=== PATIENT | female | born 1970 | race Caucasian/White ===

== ENCOUNTER 2020-05-24 16:24 | Emergency (ER) | payer MEDICAID, SELFPAY ==
--- NOTE | ~2020-05-24 | CT_ITS ---
EXAMINATION: CTA chest PE protocol DATE: 05/24/2020 18:11 INDICATION: Shortness of breath. TECHNIQUE: Computed tomography angiography (CTA) of the chest was performed with 100 mL Omnipaque-350 intravenous contrast timed to evaluate the pulmonary arteries. Coronal maximum intensity projection 3D-reconstructions were created by the technologist. Automated exposure control and iterative reconst ruction technique were employed. The dose-length product was 1048.64 mGy-cm. COMPARISON: None. FINDINGS: There is mild emphysema. There is 8 mm nodule in right lower lobe. There is a 1.8 x 1.6 cm right hilar lymph node. A calcified left lung nodule and calcified left hilar lymph nodes are consist ent with old granulomatous disease. No pleural effusion. There is diffuse hepatic steatosis. The hear t size is normal. No pericardial effusion. There are acute pulmonary emboli in right upper lobe and r ight lower lobe. There are masses in left adrenal gland measuring up to 3.4 cm measuring low-attenuat ion, consistent with adenomas. There is mild thoracic spondylosis. IMPRESSION: 1. Right-sided acute pulmonary emboli. 2. 8 mm nodule in right lower lobe suspicious for primary bronchogenic carcinoma. 3. Enlarged right hilar lymph node suspicious for metastatic disease. 4. Mild emphysema. 5. I discussed these results with Dr. Cuevas. Reviewed, dictated and finalized at location A. IMPRESSION: 1. Right-sided acute pulmonary emboli. 2. 8 mm nodule in right lower lobe suspicious for primary bronchogenic carcinom a. 3. Enlarged right hilar lymph node suspicious for metastatic disease. 4. Mild emphysema. 5. I discussed these results with Dr. Cuevas.
[2020-05-24 16:35] VITALS: BP 155/103; PULSE 102; RESP 20; TEMP 37.2; O2SAT 96
--- NOTE | 2020-05-24 16:44 | ED.LOWEXIN ---
HPI - Extremity Injury (Lower) General Chief Complaint: Extremity Injury, Lower Stated Complaint: leg pain Time Seen by Provider: 05/24/20 16:45 Source: patient Limitations: no limitations History of Present Illness HPI Narrative: 49-year-old woman comes in today complaining of 1 week of right medial calf pain and tenderness to palpation in that area. Patient states that she felt little short of breath today while going to the bathroom but otherwise has had no other symptoms such as nausea, vomiting, syncope or chest pain. She had no prior similar symptoms and denies prior injury. She has a smoker but has no history of hormone use, recent immobilization, recent surgery or prior VTE.. Onset (ago): week(s) (1) Severity: moderate Relieving factors: nothing Exacerbating factors: weight bearing, movement and palpation Context: other ( No injury) Associated symptoms: able to partially bear weight Other symptoms: SOB Related Data Allergies Allergy/AdvReac Type Severity Reaction Status Date / Time aspirin Allergy Itching Verified 05/24/20 16:49 Corticosteroids Allergy Itching Verified 05/24/20 16:49 (Glucocorticoids) NSAIDS (Non-Steroidal Allergy Itching Verified 05/24/20 16:49 Anti-Inflamma povidone-iodine Allergy Itching Verified 05/24/20 16:49 [From Betadine] soap [From Betadine] Allergy Itching Verified 05/24/20 16:49 Review of Systems Constitutional: Constitutional: Denies chills and Denies fever(s) Eyes: Eyes: Denies change in vision and Denies photophobia ENT: Denies dysphagia, Denies nasal congestion and Denies sore throat Cardiovascular: Cardiovascular: Denies chest pain and Denies radiating jaw, neck or arm pain Respiratory: Respiratory: Denies cough, Denies dyspnea and Denies wheezing Gastrointestinal: Gastrointestinal: Denies abdominal pain, Denies nausea and Denies vomiting Genitourinary: Genitourinary: Denies nocturia and Denies dysuria Integumentary/Breasts: Skin/Breast: Denies pruritus, Denies rash and Denies skin ulcer Neurologic: Denies vertigo, Denies dizziness and Denies syncope Hematologic/Lymphatic: Hematologic/Lymphatic: Denies easy bleeding and Denies easy bruising Allergic/Immunologic: Allergic/Immunologic: Denies lip swelling, Denies tongue swelling and Denies wheezing PMFSH Surgical History Surgical History (Updated 05/24/20 @ 16:56 by Mark Cuevas MD) H/O: hysterectomy Social History Social History Smoking status: Current every day smoker Substance use: never Living arrangements: with family Exam Const: General: healthy appearing and alert Nutritional Appearance: obese Orientation/consciousness: patient oriented x3 Limitations: no limitations Other: [id number] acute distress. Eyes: Conjunctivae: conjunctivae normal Pupils: Equal, round and reactive pupils present EOM: EOMs intact bilaterally Resp: Effort & Inspection: normal respiratory effort and not labored Auscultation: clear to auscultation bilaterally, no rales, no rhonchi and no wheezes Cardio: Rate: regular rate Rhythm: regular rhythm Heart sounds: no murmurs Skin: General skin exam: normal color, no jaundice and no pallor Rashes: no rashes Neuro: General: patient oriented x3, moves all extremities, no focal motor deficits and CN's II-XI intact bilaterally Speech: normal speech Extrem: General: no clubbing, cyanosis or edema Other: Tenderness to palpation over the medial aspect of the right calf. Psych: Appearance: grossly normal and well kempt Mental Status: mental status grossly normal Affect: normal affect Attitude: cooperative Thought content: Yes Normal thought content present Course Course Emergency Course: Multiple times and a great detail I discussed the need for inpatient treatment given her high risk pulmonary embolus. with her permission her friend was included in the conversation. I explained that
[2020-05-24 17:11] LABS: Basophils Absolute Auto 0.04 K/mm3 (0.00-0.10); Basophils Percent Auto 0.3 % (0.0-1.0); Eosinophils Percent Auto 0.7 % (1.0-6.0); Hemoglobin 16.9 g/dL (12.0-15.0); Immature Granulocyte Absolute 0.04 K/mm3 (0.00-0.00); Immature Granulocyte Percent A 0.3 % (0.0-0.0); Lymphocytes Absolute Auto 3.64 K/mm3 (1.10-4.50); Lymphocytes Percent Auto 26.4 % (18.0-42.0); Mean Corpuscular HGB Conc 33.1 g/dL (32.0-36.0); Mean Corpuscular Hemoglobin 30.9 pg (27.0-31.0); Mean Corpuscular Volume 93.2 fL (78.0-102.0); Mean Platelet Volume 10.8 fl (9.2-11.8); Monocytes Absolute Auto 0.67 K/mm3 (0.10-0.90); Monocytes Percent Auto 4.9 % (2.0-11.0); Neutrophils Absolute Auto 9.3 K/mm3 (1.7-7.2); Neutrophils Percent Auto 67.4 % (50.0-70.0); Platelet Count Result 278 K/mm3 (150-420); Red Blood Count 5.47 M/mm3 (4.20-5.40); Red Cell Distribution Width 13.3 % (11.6-14.4); White Blood Count 13.8 K/mm3 (4.8-10.8)
[2020-05-24 17:27] LABS: Alanine Aminotransferase 26 U/L (14-59); Albumin Level 3.8 g/dL (3.4-5.0); Alkaline Phosphatase 106 U/L (46-116); Anion Gap 10 mmol/L (8-16); Aspartate Amino Transferase < 10 U/L (15-37); Bilirubin,Total 0.6 mg/dL (0.00-1.00); Blood Urea Nitrogen 10 mg/dL (7-18); Calcium 9.2 mg/dL (8.5-10.1); Carbon Dioxide 27 mmol/L (21-32); Chloride 105 mmol/L (98-108); Estimated Glomerular Filt Rate > 60; Glucose 101 mg/dL (70-99); Osmolality Calculated 293 mOsm/kg (285-295); Potassium 4.5 mmol/L (3.5-5.1); Sodium 142 mmol/L (136-145)
[2020-05-24 17:28] LABS: Partial Thromboplastin Time 27.3 SEC (22.3-31.6); Prothrombin Time 10.3 Seconds (9.64-11.0)
[2020-05-24 17:30] LABS: CRP 3.4 mg/dL (0.0-0.9); D Dimer 1.57 mg/L (0.19-0.50)
[2020-05-24 18:50] VITALS: BP 145/109; PULSE 90; RESP 24; O2SAT 96
[2020-05-24] MEDS: ENOXAPARIN 120 MG/0.8 ML SYRINGE SUB-Q (19:54)
[2020-05-24 20:10] VITALS: BP 142/88
== END 2020-05-24 20:10 | disposition left against medical advice (07) ==
PROVIDERS: Emergency Provider Emergency Medicine; PCP Family Medicine
DX: R91.8 Other nonspecific abnormal finding of lung field (principal); I26.99 Other pulmonary embolism without acute cor pulmonale
CPT/HCPCS: 36415; 71275; 80053; 85025; 85380; 85610; 85730; 86140; 96372; 99283; 99284; A9270; J1650; Q9965

== ENCOUNTER 2020-09-08 09:53 | Outpatient (CLI) | payer BC, SELFPAY ==
[2020-09-08 10:31] LABS: SARS-CoV-2 Ag Negative (Negative)
== END 2020-09-08 09:54 | disposition home or self-care (01) ==
PROVIDERS: PCP Family Medicine; Visit Provider Family Medicine
DX: R06.02 Shortness of breath (principal); Z20.828 Contact with and (suspected) exposure to other viral communicable diseases
CPT/HCPCS: 87426